=== PATIENT | female | born 1970 | race Caucasian/White ===

== ENCOUNTER 2024-01-04 18:16 | Emergency (ER) | payer OTHER ==
[~2024-01-04] VITALS: Ht 172.7 cm; Wt 57.4 kg
[2024-01-04 18:16] VITALS: BP 142/73; TEMP 97.4; O2SAT 99
[2024-01-04] MEDS ORDERED: ALPR1TAB3 (18:23)
[2024-01-04] MEDS ORDERED: ATOR40TA75 (18:23)
[2024-01-04] MEDS ORDERED: PANT40TA29 (18:23)
[2024-01-04 18:58] LABS: BASO % 0.4 % (0.0-1.0); EOS # 0.1 10^3/uL (0.0-0.5); EOS % 0.7 % (0.0-3.0); HEMATOCRIT 36.2 % (36.0-47.0); HEMOGLOBIN 12.3 g/dl (12.0-15.5); LYMPH # 3.3 10^3/uL (1.5-5.0); MEAN CORPUSCULAR HEMOGLOBIN 31.4 pg (27.0-33.0); MEAN CORPUSCULAR VOLUME 92.3 fl (80.0-96.0); MONO # 0.3 10^3/uL (0.0-0.8); MONO % 4.7 % (2.0-8.0); NEUTROPHILS # 3.2 10^3/uL (1.5-8.5); NEUTROPHILS % 46.1 % (36.0-66.0); PLATELET COUNT, AUTOMATED 250 10^3/uL (150-450); RED BLOOD COUNT 3.92 10^6/uL (4.00-5.40)
[2024-01-04 19:26] LABS: LIPASE 32 U/L (12-53)
[2024-01-04 19:28] LABS: ALBUMIN 3.9 G/DL (3.2-5.2); ALKALINE PHOSPHATASE 58 U/L (46-116); ALT/SGPT 11 U/L (7.0-40); AST/SGOT 11 U/L (<34); BILIRUBIN,DIRECT < 0.1 MG/DL (<0.4); BILIRUBIN,TOTAL 0.3 MG/DL (0.3-1.2); BLOOD UREA NITROGEN 5 MG/DL (9-23); CALCIUM LEVEL 9.5 MG/DL (8.5-10.1); CARBON DIOXIDE LEVEL 26 MMOL/L (20-31); CHLORIDE LEVEL 112 MMOL/L (98-107); CREATININE FOR GFR 0.79 MG/DL (0.55-1.30); GLOMERULAR FILTRATION RATE > 60.0 (>51); GLUCOSE, FASTING 92 MG/DL (60-100); SODIUM LEVEL 144 MMOL/L (136-145); TOTAL PROTEIN 6.6 G/DL (5.7-8.2)
[2024-01-04] MEDS ORDERED: ISOVUE-370 76% 100ML VIAL As Ordered ONE (20:52)
[2024-01-04 21:03] LABS: CK-MB VALUE MASS < 1.0 NG/ML (<3.6)
[2024-01-04] MEDS: NS 1,000 ML IV ONE (21:03)
[2024-01-04] MEDS: ACETAMINOPHEN *IV* 1,000 MG in IV 1 EA IV ONE (21:04)
[2024-01-04 21:05] LABS: CPK CREATINE PHOSPHOKINASE 64 U/L (34-145); MB/CK RELATIVE INDEX 1.56 (< OR =4)
[2024-01-04] MEDS ORDERED: MIRA3350 PO (23:00)
== END 2024-01-05 00:44 | disposition home or self-care (01) ==
LOC: M ED 18:16
DX: R10.9 Unspecified abdominal pain (principal); J44.9 Chronic obstructive pulmonary disease, unspecified; I45.10 Unspecified right bundle-branch block; Z79.899 Other long term (current) drug therapy
CPT/HCPCS: 71275; 74177; 80048; 80076; 81001; 82550; 82553; 83690; 84484; 85025; 87086; 93005; 96365; 96366; 99283; J0131; Q9967